=== PATIENT | female | born 1970 | race Caucasian/White ===

== ENCOUNTER → 2017-05-08 10:14 | Outpatient (CLI) | payer OTHER, SELFPAY ==
[2017-05-08 13:00] LABS: Ferritin 21 ng/mL (8-252); Iron 50 ug/dL (50-170)
[2017-05-10 09:53] LABS: Vitamin B12 674 pg/mL (211-911)
== END ==
PROVIDERS: Family Provider Family Medicine; PCP Family Medicine; Visit Provider Family Medicine
DX: D64.9 Anemia, unspecified (principal); E53.8 Deficiency of other specified B group vitamins
CPT/HCPCS: 36415; 82607; 82728; 83540

== ENCOUNTER → 2017-12-04 08:51 | Outpatient (CLI) | payer OTHER, SELFPAY ==
[2017-12-04 10:13] LABS: Anion Gap 12 (5-15); BUN 13 mg/dL (7-18); BUN/Creat Ratio 15.4 RATIO (10-20); Calcium,Total 8.7 mg/dL (8.5-10.1); Chloride 103 mmol/L (98-107); Cholesterol 146 mg/dL (200); Creatinine, Serum 0.84 mg/dL (0.55-1.02); EST Glomerular Filtration Rate 77 mL/min (>60); Est Glom Filt Rate - Afr Amer 93 mL/min (>60); Ferritin 36 ng/mL (8-252); Glucose 98 mg/dL (74-106); High Density Lipoprotein 48 mg/dL; Iron 75 ug/dL (50-170); Potassium 3.7 mmol/L (3.5-5.1); Sodium Level 141 mmol/L (136-145); Triglycerides 161 mg/dL; Very Low Density Lipoprotein 32 mg/dL (5-40)
[2017-12-06 09:49] LABS: Vitamin B12 1410 pg/mL (211-911); Vitamin D,25 Hydroxy 31.9 ng/mL (29.95-100.01)
== END ==
PROVIDERS: Family Provider Family Medicine; PCP Family Medicine; Visit Provider Family Medicine
DX: I10 Essential (primary) hypertension (principal); D64.9 Anemia, unspecified; E53.8 Deficiency of other specified B group vitamins; E55.9 Vitamin D deficiency, unspecified; Z13.220 Encounter for screening for lipoid disorders
CPT/HCPCS: 36415; 80048; 80061; 82306; 82607; 82728; 83540

== ENCOUNTER → 2018-12-14 08:32 | Outpatient (CLI) | payer OTHER, SELFPAY ==
[2018-12-14 10:01] LABS: Absolute Lymphocyte Count 2.39 X10^3/uL (0.83-4.51); Absolute Neutrophil Count 9.7 X10^3/uL (2.0-7.7); Basophil# 0.03 X10^3/uL; Basophil% 0.2 % (0-1); Eosinophil# 0.02 X10^3/uL; Eosinophils% 0.2 % (0-5); Hematocrit 48.2 % (37-47); Hemoglobin 15.3 g/dL (12.0-15.0); Lymphocyte # 2.39 X10^3/ul (4.0); Lymphocyte % 18.4 % (19-41); Mean Corp Hgb Conc 31.7 g/dL (32-36); Mean Corpuscular Hgb 28.8 pg (27.0-32.0); Mean Corpuscular Volume 90.6 fL (81-99); Mean Platelet Vol. 10.6 fl (6.2-12.0); Monocyte# 0.76 X10^3/uL; Monocyte% 5.9 % (0-10); NRBC Flagged by Analyzer 0 % (0-5); Neutrophil # 9.71 X10^3/uL (2.7-7.7); Neutrophil % 74.8 % (47-70); Platelet Count 263 K/mm3 (150-450); RBC Distribution Width CV 13.8 % (11.6-14.6); Red Blood Count 5.32 M/mm3 (4.2-5.4)
[2018-12-14 10:20] LABS: Anion Gap 9 (5-15); BUN 20 mg/dL (7-18); BUN/Creat Ratio 20.1 RATIO (10-20); Chloride 102 mmol/L (98-107); EST Glomerular Filtration Rate 63 mL/min (>60); Est Glom Filt Rate - Afr Amer 77 mL/min (>60); Glucose 103 mg/dL (74-106); Potassium 4.1 mmol/L (3.5-5.1); Sodium Level 139 mmol/L (136-145); Uric Acid 9.1 mg/dL (2.6-6.0)
[2018-12-14 10:24] LABS: Vitamin D,25 Hydroxy 19.4 ng/mL (29.95-100.01)
[2018-12-19 17:15] LABS: Iron 57 ug/dL (50-170)
== END ==
PROVIDERS: Family Provider Family Medicine; PCP Family Medicine; Referring Provider Family Medicine; Visit Provider Family Medicine
DX: I10 Essential (primary) hypertension (principal); M10.9 Gout, unspecified; E55.9 Vitamin D deficiency, unspecified
CPT/HCPCS: 36415; 80048; 82306; 83540; 84550; 85025

== ENCOUNTER → 2019-01-02 14:52 | Outpatient (CLI) | payer OTHER, SELFPAY ==
[2019-01-02 17:52] LABS: Uric Acid 9.3 mg/dL (2.6-6.0)
== END ==
PROVIDERS: Family Provider Family Medicine; PCP Family Medicine; Visit Provider Family Medicine
DX: M10.9 Gout, unspecified (principal)
CPT/HCPCS: 36415; 84550

== ENCOUNTER → 2019-01-03 13:43 | Outpatient (CLI) | payer OTHER, SELFPAY ==
[2019-01-06 16:04] LABS: HPV Reflexed? NOT INDICATED
== END ==
PROVIDERS: Family Provider Family Medicine; PCP Family Medicine; Referring Provider Nurse Practitioner Adult Health; Visit Provider Nurse Practitioner Adult Health
DX: Z01.419 Encounter for gynecological examination (general) (routine) without abnormal findings (principal)
CPT/HCPCS: 88175; G0145

== ENCOUNTER → 2019-02-17 12:29 | Outpatient (CLI) | payer OTHER, SELFPAY ==
[2019-02-17 14:09] LABS: Uric Acid 7.1 mg/dL (2.6-6.0)
== END ==
PROVIDERS: Family Provider Family Medicine; PCP Family Medicine; Referring Provider Family Medicine; Visit Provider Family Medicine
DX: M10.9 Gout, unspecified (principal)
CPT/HCPCS: 36415; 84550

== ENCOUNTER → 2019-03-20 11:33 | Outpatient (CLI) | payer OTHER, SELFPAY ==
[2019-03-20 14:38] LABS: Uric Acid 6.3 mg/dL (2.6-6.0)
== END ==
PROVIDERS: Family Provider Family Medicine; PCP Family Medicine; Visit Provider Family Medicine
DX: M10.9 Gout, unspecified (principal)
CPT/HCPCS: 36415; 84550

== ENCOUNTER → 2020-02-07 12:11 | Outpatient (CLI) | payer OTHER, SELFPAY ==
--- NOTE | 2020-02-07 12:13 | BI_ITS ---
MAMMOGRAPHY - BILATERAL SCREENING REASON FOR EXAM: Female, 49 years old. Routine annual screening examination. PERTINENT HISTORY: Non-contributory. TECHNIQUE: Digital bilateral breast ethel (3D mammographic acquisition) in the CC and MLO projections. 2-D mediolateral oblique (MLO) and craniocaudad (CC) views of both breasts were obtained. CAD: Full Field Digital Mammography with Computer Added Detection was performed. COMPARISON: None. Baseline examination. FINDINGS: Breast Composition: The breasts are heterogeneously dense, which may obscure small masses. There are no dominant masses or suspicious calcifications. Small benign appearing bilateral axillary lymph nodes. No other significant abnormalities are identified. BI/SCREEN MAMM (CAD) W/ETHEL BILAT IMPRESSION: Negative screening mammogram. Yearly followup mammogram recommended. (A) ASSESSMENT CATEGORY: BIRADS Category 2: Benign. A letter regarding these results will be sent to the patient by the facility within 30 days. Approximately 10% of breast cancers are not detected by mammography. A normal mammogram should not delay biopsy of a clinically suspicious abnormality. [id number] Electronically Signed: Ad Burk, at 13:02 EST , Service support ,
== END ==
PROVIDERS: PCP Family Medicine; Referring Provider Family Medicine; Visit Provider Family Medicine
DX: Z12.31 Encounter for screening mammogram for malignant neoplasm of breast (principal)
CPT/HCPCS: 77063; 77067

== ENCOUNTER → 2020-02-27 18:07 | Outpatient (CLI) | payer OTHER, SELFPAY | PROVIDERS: PCP Family Medicine; Referring Provider Nurse Practitioner Family; Visit Provider Nurse Practitioner Family | DX: Z20.828 Contact with and (suspected) exposure to other viral communicable diseases (principal) | CPT/HCPCS: 87635; U0003 ==

== ENCOUNTER → 2020-11-15 08:11 | Outpatient (CLI) | payer OTHER, SELFPAY ==
[2020-11-15 10:19] LABS: Hematocrit 45.4 % (37-47); Hemoglobin 14.6 g/dL (12.0-15.0); Mean Corp Hgb Conc 32.2 g/dL (32-36); Mean Corpuscular Hgb 29.1 pg (27.0-32.0); Mean Corpuscular Volume 90.4 fL (81-99); Mean Platelet Vol. 10.3 fl (6.2-12.0); Platelet Count 271 K/mm3 (150-450); RBC Distribution Width CV 13.5 % (11.6-14.6); RBC Distribution Width SD 45.1 fl (35.1-43.9); Red Blood Count 5.02 M/mm3 (4.2-5.4)
[2020-11-15 10:37] LABS: Iron 83 ug/dL (50-170)
== END ==
PROVIDERS: PCP Family Medicine; Visit Provider Family Medicine
DX: D64.9 Anemia, unspecified (principal)
CPT/HCPCS: 36415; 83540; 85027

== ENCOUNTER → 2021-08-14 | Outpatient (CLI) | payer OTHER, SELFPAY ==
[2021-08-14 10:32] LABS: Vitamin B12 296 pg/mL (211-911); Vitamin D,25 Hydroxy 54.8 ng/mL
[2021-08-14 11:22] LABS: ALB/GLOB Ratio 0.9 RATIO (0.9-2.4); AST(SGOT) 16 U/L (15-37); Alanine Aminotransfer ALT/SGPT 20 U/L (13-56); Albumin, Serum 3.4 g/dL (3.2-5.0); Alkaline Phosphatase 79 U/L (45-117); Anion Gap 11 (5-15); BUN 17 mg/dL (7-18); BUN/Creat Ratio 22.7 RATIO (10-20); Calcium,Total 8.9 mg/dL (8.5-10.1); Chloride 102 mmol/L (98-107); Cholesterol 175 mg/dL (200); Creatinine, Serum 0.75 mg/dL (0.55-1.02); EST Glomerular Filtration Rate 87 mL/min (>60); Est Glom Filt Rate - Afr Amer 105 mL/min (>60); Globulin 3.9 g/dL (2.2-4.2); Glucose 95 mg/dL (74-106); High Density Lipoprotein 54 mg/dL; Potassium 3.7 mmol/L (3.5-5.1); Protein, Total 7.3 g/dL (6.4-8.2); Sodium Level 137 mmol/L (136-145); Triglycerides 171 mg/dL; Very Low Density Lipoprotein 34 mg/dL (5-40)
== END | disposition home or self-care (01) ==
LOC: MFPLAB 08:20
PROVIDERS: PCP Family Medicine; Referring Provider Family Medicine; Visit Provider Family Medicine
DX: I10 Essential (primary) hypertension (principal); E55.9 Vitamin D deficiency, unspecified; E53.8 Deficiency of other specified B group vitamins
CPT/HCPCS: 36415; 80053; 80061; 82306; 82607; 84550

== ENCOUNTER → 2022-07-06 | Outpatient (CLI) | payer OTHER, SELFPAY ==
--- NOTE | 2022-07-06 12:43 | BI_ITS ---
MAMMOGRAPHY - BILATERAL SCREENING REASON FOR EXAM: Female, 52 years old. Routine annual screening examination. PERTINENT HISTORY: Non-contributory. TECHNIQUE: Digital bilateral breast ethel (3D mammographic acquisition) in the CC and MLO projections. 2-D mediolateral oblique (MLO) and craniocaudad (CC) views of both breasts were obtained. CAD: Full Field Digital Mammography with Computer Added Detection was performed. COMPARISON: Comparison is made with prior study February 07, 2020. FINDINGS: Breast Composition: The breasts are heterogeneously dense, which may obscure small masses. There are no dominant masses or suspicious calcifications. No other significant abnormalities are identified. There has been no significant change since the prior study. BI/SCRN MAMM (CAD)W/ETHEL BILAT IMPRESSION: Stable bilateral screening mammogram. Yearly follow-up mammogram recommended. (A) ASSESSMENT CATEGORY: BIRADS Category 1: Negative. A letter regarding these results will be sent to the patient by the facility within 30 days. Approximately 10% of breast cancers are not detected by mammography. A normal mammogram should not delay biopsy of a clinically suspicious abnormality. [id number] Electronically Signed: Ad Burk MD at 13:59 EDT ,
== END | disposition home or self-care (01) ==
LOC: OPBI 12:40
PROVIDERS: PCP Family Medicine; Referring Provider Family Medicine; Visit Provider Family Medicine
DX: Z12.31 Encounter for screening mammogram for malignant neoplasm of breast (principal)
CPT/HCPCS: 77063; 77067

== ENCOUNTER → 2023-04-10 | Outpatient (CLI) | payer OTHER, SELFPAY ==
--- OUTSIDE RECORDS SUMMARY | 2023-04-10 10:43 | XMS RPT_ITS | CCD ---
Author Name Unknown Address [address] [place] [address] Organization [facility] Care Team Providers Care Planning Rn Name Role Phone Siders, Katherine C Unavailable Unavailable Tito Medina Unavailable Siders, Katherine C Unavailable Unavailable Siders, Katherine C Unavailable Unavailable Andreia Escalera MD Unavailable [phone] Morse FARM EQUIPMENT OPERATOR, Radha Katherine Unavailable Unavaila ble Yensho FARM EQUIPMENT OPERATOR, Deysi A Unavailable Unavailab Tiffanie Ridley Unavailable Unavailable Morse FARM EQUIPMENT OPERATOR, Radha Katherine Unavailable Unavaila ble Morse FARM EQUIPMENT OPERATOR, Radha Katherine Unavailable Unavaila ble Morse FARM EQUIPMENT OPERATOR, Radha Katherine Unavailable Unavaila ble Morse FARM EQUIPMENT OPERATOR, Radha Katherine Unavailable Unavaila ble LYNDSAY, JORGE Unavailable Unavailable Yensho FARM EQUIPMENT OPERATOR, Deysi A Unavailable Unavailab le Morse FARM EQUIPMENT OPERATOR, Radha Katherine Unavailable Unavaila ble Tito Medina Unavailable Siders, Katherine C Unavailable Unavailable Tiffanie Anton Unavailable Unavailable Allergies Allergy Classification Reported Allergen(s) Allergy Type Date of Onset Reaction(s) Facility (19 sources) albuterol drug allergy 7 Tachycardia & SOB [facility] Work Phone: (1 source) Seasonal allergy; Translations: [SEASONAL ALLERGIES] Propensity to adverse reactions (disorder) 4 AOF [facility] Repository Medications Completed/Discontinued Medications Medication Drug Class(es) Dates Sig (Normalized) Sig (Original) atenolol 25 mg oral tablet (20 sources) beta-Adrenergic Vandana Start: 10-19-2015 ATENOLOL 25 MG TABS 0.5 tab twice daily ATENOLOL [id number] Radha Pierson betamethasone 0.5 mg/ml topical cream (7 sources) Corticosteroid Start: 10-22-2016 BETAMETHASONE DIPROPIONATE 0.05 % CREA as needed for poison dario BETAMETHASONE DIPROPIONATE [id number] Katherine Thomas celecoxib 200 mg oral capsule (20 sources) Nonsteroidal Anti-inflammatory Drug Start: 02-24-2016 End: 07-22-2016 CELEBREX 200 MG CAPS One cap daily CELECOXIB [id number] Deysi Garcia LPN citalopram 40 mg oral tablet (20 sources) Serotonin Reuptake Inhibitor Start: 05-06-2016 CELEXA 40 MG TABS 1.5 tab daily CITALOPRAM HYDROBROMIDE [id number] Radha Pierson esomeprazole 20 mg injection (19 sources) Proton Pump Inhibitor Start: 07-08-2016 NEXIUM 24HR 20 MG TBEC Two caps daily ESOMEPRAZOLE MAGNESIUM [id number] Radha Pierson Problems Active Problems Problem Classification Problem Date Documented Da te Episodic/Chronic Asthma (19 sources) Asthma; Translations: [Unspecified asthma, uncomplicated] Onset: 07-22-2016 07-22-2016 Chronic Other nutritional; endocrine; and metabolic disorders (19 sources) Obesity; Translations: [Obesity, unspecified] Onset: 07-22-2016 07-22-2016 Chronic Other upper respiratory disease (13 sources) Allergic rhinitis; Translations: [Allergic rhinitis, unspecified] Onset: 08-20-2016 08-21-2016 Chronic Past or Other Problems Problem Classification Problem Date Documented Da te Episodic/Chronic Allergic reactions (5 sources) Contact dermatitis due to plants; Translations: [Unspecified contact dermatitis due to plants, except food] Onset: 11-01-2016 11-01-2016 Episodic Deficiency and other anemia (9 sources) Anemia; Translations: [Anemia, unspecified] Onset: 10-15-2016 10-15-2016 Episodic Other lower respiratory disease (20 sources) Dyspnea on exertion; Translations: [Cough] Onset: 07-22-2016 07-22-2016 Episodic Other lower respiratory disease (6 sources) Cough; Translations: [Cough] Onset: 07-22-2016 07-22-2016 Episodic Other screening for suspected conditions (not mental disorders or infectious disease) (6 sources) Pulmonary function studies abnormal; Translations: [Abnormal results of pulmonary function studies] Onset: 07-22-2016 07-22-2016 Episodic Results Test Name Value Interpretation Reference Range Facil ity Vital Signs Date Time Vital Sign Value Performing Clinician Facility 11-01-2016 11:03-0400 BMI (Body Mass Index) 40.56 kg/m2 Tito [facility] Work Phone: 11-01-2016 11:03-0400 Body Temperature 97.8 [degF] Tito Joce [facility] Work Phone: 11-01-2016 11:03-0400 BP Diastolic 72 mm[Hg] Titotomas [facility] Work Phone: 11-01-2016 11:03-0400 BP Systolic 128 mm[Hg] Tito [facility] Work Phone: 11-01-2016 11:03-0400 Height 160.02 cm Tito Hobson [facility] Work Phone: 11-01-2016 11:03-0400 Pulse (Heart Rate) 72 /min Tito Hobson [facility] Work Phone: 11-01-2016 11:03-0400 Respiratory Rate 16 /min Tito Hobson [facility] Work Phone: 11-01-2016 11:03-0400 Weight 103.87 kg Tito Hobson [facility] Work Phone: 10-15-2016 11:02-0400 BMI (Body Mass Index) 39.85 kg/m2 Katherine [facility] Work Phone: 10-15-2016 11:02-0400 Body Temperature 97.3 [degF] Katherine [facility] Work Phone: 10-15-2016 11:02-0400 Height 160.02 cm Katherine [facility] Work Phone: 10-15-2016 11:02-0400 Pulse (Heart Rate) 66 /min Katherine Thomas [facility] Work Phone: 10-15-2016 11:02-0400 Respiratory Rate 18 /min Katherine Thomas [facility] Work Phone: 10-15-2016 11:02-0400 Weight 102.06 kg Katherine Thomas [facility] Work Phone: 09-30-2016 07:17-0400 BMI (Body Mass Index) 40.38 kg/m2 Deysi Yensho FARM EQUIPMENT OPERATOR [facility] Work Phone: 09-30-2016 07:17-0400 Body Temperature 97.5 [degF] Deysi Yensho FARM EQUIPMENT OPERATOR [facility] Work Phone: 09-30-2016 07:17-0400 BP Diastolic 85 mm[Hg] Deysi Yensho FARM EQUIPMENT OPERATOR [facility] Work Phone: 09-30-2016 07:17-0400 BP Systolic 164 mm[Hg] Deysi Yensho FARM EQUIPMENT OPERATOR [facility] Work Phone: 09-30-2016 07:17-0400 Height 160.02 cm Deysi Yensho FARM EQUIPMENT OPERATOR [facility] Work Phone: 09-30-2016 07:17-0400 Pulse (Heart Rate) 77 /min Deysi Yensho FARM EQUIPMENT OPERATOR [facility] Work Phone: 09-30-2016 07:17-0400 Respiratory Rate 20 /min Deysi Yensho FARM EQUIPMENT OPERATOR [facility] Work Phone: 09-30-2016 07:17-0400 Weight 103.42 kg Deysi Yensho FARM EQUIPMENT OPERATOR [facility] Work Phone: 08-20-2016 13:15-0400 BMI (Body Mass Index) 40.03 kg/m2 Deysi Yensho FARM EQUIPMENT OPERATOR [facility] Work Phone: 08-20-2016 13:15-0400 Body Temperature 99.2 [degF] Deysi Rigoho FARM EQUIPMENT OPERATOR [facility] Work Phone: 08-20-2016 13:15-0400 BP Diastolic 81 mm[Hg] Deysi Dalensho FARM EQUIPMENT OPERATOR [facility] Work Phone: 08-20-2016 13:15-0400 BP Systolic 143 mm[Hg] Deysi Dalensho FARM EQUIPMENT OPERATOR [facility] Work Phone: 08-20-2016 13:15-0400 Height 160.02 cm Deysi Rigoho FARM EQUIPMENT OPERATOR [facility] Work Phone: 08-20-2016 13:15-0400 Pulse (Heart Rate) 83 /min Deysi Sierraho FARM EQUIPMENT OPERATOR [facility] Work Phone: 08-20-2016 13:15-0400 Pulse Oximetry 93 % Deysi Sierraho FARM EQUIPMENT OPERATOR [facility] Work Phone: 08-20-2016 13:15-0400 Respiratory Rate 18 /min Deysi Rigoho FARM EQUIPMENT OPERATOR [facility] Work Phone: 08-20-2016 13:15-0400 Weight 102.51 kg Deysi Sierraho FARM EQUIPMENT OPERATOR [facility] Work Phone: 07-22-2016 08:52-0400 BMI (Body Mass Index) 41.45 kg/m2 Radha Morse LPN [facility] Work Phone: 07-22-2016 08:52-0400 Body Temperature 98.8 [degF] Radha Morse LPN [facility] Work Phone: 07-22-2016 08:52-0400 Body weight 106.14 kg Tiffanie Anton [facility] Work Phone: 07-22-2016 08:52-0400 BP Diastolic 68 mm[Hg] Radha Morse FARM EQUIPMENT OPERATOR [facility] Work Phone: 07-22-2016 08:52-0400 BP Systolic 138 mm[Hg] Radha Morse FARM EQUIPMENT OPERATOR [facility] Work Phone: 07-22-2016 08:52-0400 Height 160.02 cm Radha Morse FARM EQUIPMENT OPERATOR [facility] Work Phone: 07-22-2016 08:52-0400 Pulse (Heart Rate) 94 /min Radha Morse FARM EQUIPMENT OPERATOR [facility] Work Phone: 07-22-2016 08:52-0400 Pulse Oximetry 99 % Radha Morse FARM EQUIPMENT OPERATOR [facility] Work Phone: 07-22-2016 08:52-0400 Respiratory Rate 18 /min Radha Morse FARM EQUIPMENT OPERATOR [facility] Work Phone: 07-22-2016 08:52-0400 Weight 106.14 kg Radha Morse FARM EQUIPMENT OPERATOR [facility] Phone: Encounters Encounter Date Encounter Type Care Provider Facility Start: 12-24-2016 End: 12-24-2016 Ambulatory [facility] Procedures Date Procedure Procedure Detail Performing Clinician Start: 10-15-2016 End: 10-15-2016 *CBC with Differential Andreia Escalera MD Work Phone: Start: 07-22-2016 End: 07-22-2016 Documentation of current medications Tiffanie Anton Start: 07-22-2016 End: 08-18-2016 Ct thorax w/o dye Giovani Leonard DO Work Phone: Start: 07-22-2016 End: 07-22-2016 Evaluate pt use of inhaler Giovani Leonard DO Work Phone: Start: 07-22-2016 End: 08-18-2016 Globulin Giovani Leonard DO Work Phone: Start: 07-22-2016 End: 07-23-2016 IgE [Mass/volume] in Serum Giovani Leonard DO Work Phone: Plan of Treatment Date Care Activity Detail Author Start: 12-30-2016 End: 12-30-2016 Appointment Appointment [facility] Work Phone: Start: 11-04-2016 End: 11-04-2016 Appointment Appointment [facility] Work Phone: Start: 11-04-2016 End: 11-05-2016 Ct abdomen&pelvis w/contrast CT Abdomen and pelvis; with contrast material(s) [facility] [employer] Work Phone: Start: 11-01-2016 End: 11-01-2016 Appointment Appointment [facility] Work Phone: Start: 10-26-2016 End: 10-26-2016 Appointment Appointment [facility] [employer] Work Phone: Start: 10-15-2016 End: 10-15-2016 Appointment Appointment [facility] [employer] Work Phone: Start: 10-15-2016 End: 10-15-2016 *CBC with Differential *CBC with Differential [facility] [employer] Work Phone: Start: 10-15-2016 End: 10-15-2016 Diagnostic colonoscopy Colonoscopy [facility] [employer] Work Phone: Start: 10-15-2016 End: 10-23-2016 Follow Up Appt Other Follow Up Appt Other [facility] [employer] Work Phone: Start: 10-15-2016 End: 10-15-2016 Uppr gi endoscopy, diagnosis Upper gastrointestinal endoscopy [facility] [employer] Work Phone: Start: 09-30-2016 End: 09-30-2016 Appointment Appointment [facility] Work Phone: Start: 09-30-2016 End: 09-30-2016 [facility] Work Phone: Start: 09-30-2016 End: 09-30-2016 ENT Referral [facility] Work Phone: Start: 09-30-2016 End: 09-30-2016 Follow Up Appt 3 months Follow Up Appt 3 months [facility] Phone: Start: 08-20-2016 End: 08-20-2016 Appointment Appointment [facility] Phone: Start: 08-20-2016 End: 08-20-2016 Appointment Appointment [facility] Phone: Start: 08-20-2016 End: 08-20-2016 Cholesterol Methylcholine inhalation challenge [facility] Phone: Start: 08-20-2016 End: 08-20-2016 [facility] Phone: Start: 08-20-2016 End: 08-20-2016 Follow Up Appt 1 month Follow Up Appt 1 month [facility] Phone: Start: 07-22-2016 End: 07-22-2016 Appointment Appointment [facility] Phone: Start: 07-22-2016 End: 08-18-2016 Ct thorax w/o dye CT Chest without contrast [facility] Phone: Start: 07-22-2016 End: 07-22-2016 DMB D[facility] Phone: Start: 07-22-2016 End: 07-22-2016 Follow Up Appt 1 month Follow Up Appt 1 month [facility] Phone: Start: 07-22-2016 End: 07-23-2016 Globulin *JUAN Immunoglobulin E (IgE) [facility] Work Phone: Start: 07-22-2016 End: 07-23-2016 IgE mass conc (S) *JUAN Immunoglobulin E (IgE) [facility] Work Phone: Summary Purpose Family History No Family History Records Found Advance Directives No Advanced Directives Records Found Additional Source Comments INFORMATION SOURCE (unrecogn ized section and content) FOR RECORDS PERTAINING TO PATIENTS WHO ARE OR HAVE BEEN ENROLLED IN A CHEMICAL DEPENDENCY/SUBSTANCEABUSE PROGRAM, SOME INFORMATION MAY BE OMITTED. This clinical summary was aggregated from multiple sources. Caution should be exercised in using it in the provision of clinical care. This summary normalizes information from multiple sources, and as a consequence, information in this document may materially change the coding, format and clinical context of patient data. In addition, data may be omitted in some cases. CLINICAL DECISIONS SHOULD BE BASED ON THE PRIMARY CLINICAL RECORDS. [employer] [facility]. provides no warranty or guarantee of the accuracy or completeness of information in this document.
[2023-04-10 11:33] LABS: Anion Gap 9 (5-15); BUN 12 mg/dL (7-18); BUN/Creat Ratio 12.6 RATIO (10-20); Calcium,Total 9.5 mg/dL (8.5-10.1); Chloride 106 mmol/L (98-107); Cholesterol 177 mg/dL (200); Creatinine, Serum 0.95 mg/dL (0.55-1.02); EST Glomerular Filtration Rate 66 mL/min (>60); Est Glom Filt Rate - Afr Amer 79 mL/min (>60); Glucose 106 mg/dL (74-106); High Density Lipoprotein 59 mg/dL; Potassium 3.9 mmol/L (3.5-5.1); Sodium Level 138 mmol/L (136-145); Triglycerides 150 mg/dL; Uric Acid 5.7 mg/dL (2.6-6.0); Very Low Density Lipoprotein 30 mg/dL (5-40); Vitamin B12 498 pg/mL (211-911); Vitamin D,25 Hydroxy 38.7 ng/mL
== END | disposition home or self-care (01) ==
LOC: LAB 10:40
PROVIDERS: PCP Family Medicine; Referring Provider Family Medicine; Visit Provider Family Medicine
DX: I10 Essential (primary) hypertension (principal); E55.9 Vitamin D deficiency, unspecified
CPT/HCPCS: 36415; 80048; 80061; 82306; 82607; 84550

== ENCOUNTER → 2023-11-23 | Outpatient (CLI) | payer OTHER, SELFPAY ==
--- NOTE | 2023-11-23 07:41 | BI_ITS ---
MAMMOGRAPHY - BILATERAL SCREENING REASON FOR EXAM: Female, 53 years old. Routine annual screening examination. PERTINENT HISTORY: Non-contributory. TECHNIQUE: Digital bilateral breast ethel (3D mammographic acquisition) in the CC and MLO projections. 2-D mediolateral oblique (MLO) and craniocaudad (CC) views of both breasts were obtained. CAD: Full Field Digital Mammography with Computer Added Detection was performed. COMPARISON: Comparison is made with prior study July 06, 2022 and February 07, 2020. FINDINGS: Breast Composition: The breasts are heterogeneously dense, which may obscure small masses. There are no dominant masses or suspicious calcifications. Stable 5 mm well-defined nodule in the axillary region of the left breast suggestive of a small lymph node. No other significant abnormalities are identified. There has been no significant change since the prior study. BI/SCRN MAMM (CAD)W/ETHEL BILAT IMPRESSION: Stable bilateral screening mammogram. Yearly follow-up mammogram recommended. (A) ASSESSMENT CATEGORY: BIRADS Category 2: Benign. A letter regarding these results will be sent to the patient by the facility within 30 days. Approximately 10% of breast cancers are not detected by mammography. A normal mammogram should not delay biopsy of a clinically suspicious abnormality. [id number] Electronically Signed: Ad Burk MD at 8:17 EDT ,
== END | disposition home or self-care (01) ==
LOC: OPBI 07:41
PROVIDERS: PCP Family Medicine; Referring Provider Family Medicine; Visit Provider Family Medicine
DX: Z12.31 Encounter for screening mammogram for malignant neoplasm of breast (principal)
CPT/HCPCS: 77063; 77067

== ENCOUNTER → 2024-09-25 | Outpatient (CLI) | payer OTHER, SELFPAY ==
[2024-09-25 12:24] LABS: Hematocrit 43.5 % (37-47); Hemoglobin 14.4 g/dL (12.0-15.0); Immature Granulocytes Count 0.020 X10^3/uL (0.0-0.0); Mean Corp Hgb Conc 33.1 g/dL (32-36); Mean Corpuscular Volume 92.8 fL (81-99); Mean Platelet Vol. 10.7 fl (6.2-12.0); NRBC Flagged by Analyzer 0 % (0-5); Platelet Count 240 K/mm3 (150-450); RBC Distribution Width CV 14.0 % (11.6-14.6); RBC Distribution Width SD 47.0 fl (35.1-43.9); Red Blood Count 4.69 M/mm3 (4.2-5.4); White Blood Count 7.5 K/mm3 (4.4-11.0)
[2024-09-25 13:16] LABS: AST(SGOT) 18 U/L (<=31); Alanine Aminotransfer ALT/SGPT 15 U/L (<=34); Albumin, Serum 3.9 g/dL (3.5-5.0); Alkaline Phosphatase 88 U/L (35-104); Anion Gap 14 (5-15); BUN 13 mg/dL (4-19); BUN/Creat Ratio 18.9 RATIO (10-20); Calcium,Total 9.1 mg/dL (7.6-11.0); Carbon Dioxide 22.8 mmol/L (21.0-32.0); Chloride 101 mmol/L (98-108); Cholesterol 161 mg/dL (<=200); Ferritin 74 ng/mL (22-378); Globulin 3.3 g/dL (2.2-4.2); Glucose 90 mg/dL (70-99); Low Density Lipoprotein Calc. 71 mg/dL; Potassium 3.9 mmol/L (3.3-5.1); Triglycerides 141 mg/dL; Very Low Density Lipoprotein 28 mg/dL (5-40); cholesterol:hdl ratio screen 2.60
[2024-09-25 13:46] LABS: Iron 112 ug/dL (50-170); Uric Acid 5.9 mg/dL (2.6-6.0)
== END | disposition home or self-care (01) ==
LOC: BFHLAB 08:41
PROVIDERS: PCP Family Medicine; Visit Provider Family Medicine
DX: Z00.00 Encounter for general adult medical examination without abnormal findings (principal); M10.9 Gout, unspecified; D50.9 Iron deficiency anemia, unspecified
CPT/HCPCS: 36415; 80053; 80061; 82728; 83540; 84443; 84550; 85025